=== PATIENT | female | born 1935 | race Caucasian/White ===

== ENCOUNTER 2017-07-14 15:49 | Emergency (ER) | payer MEDICARE, MEDICAID ==
[~2017-07-14] VITALS: Ht 152.4 cm; Wt 68.0 kg
[~2017-07-14 15:49] MED LIST: AMI2 PO; CYCL30DR; DABI150C PO; DIGOXIN PO; FURO-152 PO; HYDR-3511; LEVO25TA7 PO; LISI2.5T47 PO; LOPE2CAP PO; METO-396 PO; OMEG1CAP17 PO; OMEPRAZOLE PO; PRO AIR; RANI150T12 PO; SERT-112 PO
[2017-07-14] MEDS ORDERED: FAMOTIDINE 20MG/2ML VIAL IV STA (16:19)
[2017-07-14] MEDS ORDERED: SODIUM CHLORIDE 0.9% 1,000 ML IV ONE (16:19)
[2017-07-14] MEDS ORDERED: ONDANSETRON HCL 4MG/2ML VIAL IV STA (16:19)
[2017-07-14 16:42] LABS: BASOPHILS % 1.3 % (0.0-2.0); EOSINOPHILS % 2.4 % (0.0-5.0); HEMATOCRIT. 37.7 % (36.0-48.0); HEMOGLOBIN. 12.6 g/dL (12.0-16.0); LYMPHOCYTES % 26.3 % (20.0-50.0); MEAN CORPUSCULAR HEMOGLOBIN 30.4 pg (28.0-32.0); MEAN CORPUSCULAR VOLUME 91.4 fL (81.0-99.0); MEAN PLATELET VOLUME 9.1 fl (7.4-10.4); MONOCYTES % 4.7 % (2.0-8.0); NEUTROPHILS % 65.3 % (40.0-76.0); PLATELET 190 x1000/uL (130-400); RED BLOOD CELL COUNT 4.13 mill/uL (4.2-5.4)
[2017-07-14 16:47] LABS: INR 1.2; PROTHROMBIN TIME 12.3 sec (9.4-11.6)
[2017-07-14 16:49] LABS: CARBON DIOXIDE 28 mEq/L (21-32); CHLORIDE 104 mEq/L (98-107)
[2017-07-14 16:56] LABS: TROPONIN I < 0.02 ng/mL (0.00-0.04)
[2017-07-14 17:47] LABS: CLARITY URINE CLEAR (CLEAR); COLOR URINE YELLOW (YELLOW); GLUCOSE URINE NEGATIVE (NEGATIVE); KETONES URINE NEGATIVE (NEGATIVE); LEUKOCYTE ESTERASE URINE TRACE (NEGATIVE); NITRITE URINE NEGATIVE (NEGATIVE); OCCULT BLOOD URINE TRACE (NEGATIVE); PROTEIN URINE NEGATIVE (NEGATIVE); SPECIFIC GRAVITY URINE 1.009 (1.005-1.030); UROBILINOGEN URINE 0.2 E.U./dL (0.2-1.0)
[2017-07-14] MEDS ORDERED: IOHEXOL-300 100 ML BOTTLE ONE (18:25)
[2017-07-14 18:59] VITALS: BP 157/87
== END 2017-07-14 19:20 | disposition home or self-care (01) ==
LOC: ER 15:49 → CANBEDREQ 19:40
DX: K40.90 Unilateral inguinal hernia, without obstruction or gangrene, not specified as recurrent (principal); K42.9 Umbilical hernia without obstruction or gangrene; M41.9 Scoliosis, unspecified; I48.91 Unspecified atrial fibrillation; I51.7 Cardiomegaly; I11.9 Hypertensive heart disease without heart failure; K57.30 Diverticulosis of large intestine without perforation or abscess without bleeding; J45.909 Unspecified asthma, uncomplicated; Z79.01 Long term (current) use of anticoagulants; Z90.49 Acquired absence of other specified parts of digestive tract; Z98.51 Tubal ligation status
CPT/HCPCS: 36415; 71010; 74177; 80053; 81001; 83605; 83690; 84484; 85025; 85610; 93005; 96361; 96374; 96375; 99285; J2405; J3490; Q9967; J7030

== ENCOUNTER 2017-12-30 05:59 | Emergency (ER) | payer MEDICARE, MEDICAID ==
[~2017-12-30] VITALS: Ht 162.6 cm; Wt 65.2 kg
[2017-12-30 06:24] LABS: EOSINOPHILS % 1.3 % (0.0-5.0); HEMATOCRIT. 38.6 % (36.0-48.0); HEMOGLOBIN. 12.7 g/dL (12.0-16.0); LYMPHOCYTES % 19.3 % (20.0-50.0); MEAN CORPUSCULAR HEMOGLOBIN 30.3 pg (28.0-32.0); MEAN PLATELET VOLUME 9.2 fl (7.4-10.4); MONOCYTES % 3.6 % (2.0-8.0); NEUTROPHILS % 74.8 % (40.0-76.0); PLATELET 195 x1000/uL (130-400); RED BLOOD CELL COUNT 4.19 mill/uL (4.2-5.4); RED CELL DISTRIBUTION WIDTH 15.7 % (11.6-14.6)
[2017-12-30 06:28] LABS: CHLORIDE 107 mEq/L (98-107); INR 1.1; PROTHROMBIN TIME 11.1 sec (9.4-11.6)
[2017-12-30 06:35] LABS: LDL CHOLESTEROL 94 mg/dL (5-100)
[2017-12-30] MEDS ORDERED: SODIUM CHLORIDE 0.9% 1,000 ML IV ONE (06:37)
[2017-12-30] MEDS ORDERED: ONDANSETRON HCL 4MG/2ML VIAL IV ONE (06:45)
[2017-12-30] MEDS ORDERED: IOHEXOL-350 100 ML BOTTLE ONE (09:16)
[2017-12-30 09:45] VITALS: BP 163/108
== END 2017-12-30 08:55 | disposition short-term general hospital (02) ==
LOC: ER 05:59
DX: I65.23 Occlusion and stenosis of bilateral carotid arteries (principal); J45.909 Unspecified asthma, uncomplicated; I10 Essential (primary) hypertension; R41.82 Altered mental status, unspecified; Z79.01 Long term (current) use of anticoagulants
CPT/HCPCS: 36415; 70450; 70496; 70498; 71045; 80053; 82962; 83721; 83880; 84484; 85025; 85610; 93005; 96361; 96374; 99291; G0482; J2405; J7030; Q9967